=== PATIENT | female | born 1990 | race Caucasian/White ===

== ENCOUNTER 2023-08-02 16:24 | Outpatient (REF) | payer MEDICAID, SELFPAY | END 2023-08-02 16:25 | disposition home or self-care (01) | LOC: HO.HHCLNP 16:24 | PROVIDERS: Visit Provider Internal Medicine | DX: O23.42 Unspecified infection of urinary tract in pregnancy, second trimester (principal); B96.20 Unspecified Escherichia coli [E. coli] as the cause of diseases classified elsewhere | CPT/HCPCS: 87086; 87088; 87186 ==

== ENCOUNTER 2024-06-13 05:51 | Emergency (ER) | payer MEDICAID, SELFPAY ==
--- NOTE | 2024-06-13 | ECG_ITS ---
Test Reason : SOB Blood Pressure : */* mmHG Vent. Rate : 80 BPM Atrial Rate : 80 BPM P-R Int : 150 ms QRS Dur : 78 ms QT Int : 374 ms P-R-T Axes : 58 43 30 degrees QTcB Int : 431 ms Normal sinus rhythm Nonspecific ST and T wave abnormality Borderline ECG When compared with ECG of 01-May-2006 19:10, Nonspecific ST and T wave abnormality present Referred By: Generic ED Physician Electronically Signed By: MEME SILVA
--- NOTE | ~2024-06-13 | XR_ITS ---
CLINICAL HISTORY: dyspnea 1 view chest x-ray. Comparison: None Findings: The lungs are adequately expanded. No focal consolidation. No effusion or pneumothorax. Cardiac and mediastinal contours are within normal limits. No acute osseous abnormality Impression: No acute process. This document has been electronically signed by: Morris Prasad MD on 06/13/2024 07:54:55
[2024-06-13 05:54] VITALS: BP 145/92; PULSE 86; O2SAT 99
[2024-06-13 06:01] VITALS: BP 146/93; PULSE 77; RESP 20; TEMP 36.3; O2SAT 99; BMI 33.7
[2024-06-13 06:28] LABS: MANUAL DIFF FLAG NO
[2024-06-13 06:29] LABS: Basophils Absolute Auto 0.1 X10*3/uL (0.0-0.2); Basophils Percent Auto 0.6 % (0-2); Eosinophils Absolute Auto 0.2 X10*3/uL (0.0-0.4); Eosinophils Percent Auto 2.2 % (0-4); Hematocrit 42.4 % (37.0-47.0); Hemoglobin 14.6 g/dl (12.0-16.0); Imm Gran Abs Auto 0.06 X10*3/uL (0.00-0.03); Imm Gran Pct Auto 0.6 % (0.0-0.4); Lymphocytes Absolute Auto 1.5 X10*3/uL (1.2-4.9); Lymphocytes Percent Auto 14.2 % (20-40); Mean Corpuscular HGB Conc 34.4 g/dl (31.0-35.0); Mean Corpuscular Hemoglobin 29.4 pg (27.0-33.0); Mean Corpuscular Volume 85.5 fL (80.0-98.0); Mean Platelet Volume 10.4 fL (9.4-12.3); Monocytes Absolute Auto 0.7 X10*3/uL (0.1-1.2); Monocytes Percent Auto 6.8 % (2-11); Neutrophils Percent Auto 75.6 % (45-73); Platelet Count 322 X10*3/uL (160-400); Red Blood Count 4.96 X10*6/uL (4.20-5.50); Red Cell Distribution Width 14.7 % (11.0-16.0); White Blood Count 10.6 X10*3/uL (4.8-10.8)
--- OUTSIDE RECORDS SUMMARY | 2024-06-13 06:43 | XMS_ITS | Clinical Summary ---
Author Organization [facility] Address [address] [place] [address] Phone Care Team Providers Care Mixing Picker Tender Name Role Phone Brigette Gomez MD Primary Care Provider [phone] Allergies No known active allergies Medications ondansetron ODT (ZOFRAN-ODT) 4 mg disintegrating tablet Let 1 tablet dissolve under the tongue three times daily as needed for nausea or vomiting. 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 Marijuana abuse 04/13/2013 DX:Marijuana abu se History of anemia 12/30/2011 DX:History of anemia; COMMENT: H&H 8.9/31.1 History of chlamydia 2005 DX:History of chlamydia Seizures (CMS/HCC V24, CMS/HCC V28) 06/26/2023 DX:Seizures (HCC) Pyelonephritis affecting pre gnancy in second trimester 07/01/2023 DX:Pyelonephritis affecting in second trimester Family History Medical History Relation Name Comments Breast cancer Aunt No Known Problems Brother Other: autism Daughter Colon cancer Father Liver cancer Father Lung cancer Maternal Grandfather Other: heart issues Maternal Grandmother Bipolar disorder Mother Depression Mother Bipolar disorder Sister Depression Sister Other: heart murmur Sister Learning disabilities Son 1 Relation Name Status Comments Aunt Brother Daughter Alive Father Maternal Grandfather Maternal Grandmother Mother Sister Son 1 Alive Son 2 Alive Social History Tobacco Use Types Packs/Day Years Used Date Smoking Tobacco: Former Smokeless Tobacco: Never Alcohol Use Standard Drinks/Week Comments No 0 (1 standard drink = 0.6 oz pur e alcohol) Comments No Sex and Gender Information Value Date Recorded Sex Assigned at Not on file Legal Sex Female 2:29 PM EST Gender Identity Not on file Sexual Orientation Not on file Obstetrics History Last Filed Vital Signs Vital Sign Reading Time Taken Comments Blood Pressure 110/91 06/06/2024 2:00 AM EDT Pulse 72 06/06/2024 2:00 AM EDT Temperature 37.1 ??C (98.7 ??F) 06/06/2024 12:17 AM E DT Respiratory Rate 16 06/06/2024 2:00 AM EDT Oxygen Saturation 100% 06/06/2024 2:00 AM EDT Inhaled Oxygen Concentration - - Weight 84.4 kg (186 lb) 06/05/2024 10:15 PM EDT Height 160 cm (5' 3 ) 06/05/2024 10:15 PM EDT Body Mass Index 32.95 06/05/2024 10:15 PM EDT Plan of Treatment Health Maintenance Due Date Last Done Comments Hepatitis A Vaccines (1 of 2 - Risk 2-dose series) 2008 HPV Vaccines (3 - 3-dose series) 06/06/2008 02/13/2008, 12/07/2007 Depression Screening 09/20/2023 08/11/2022 Social Influencers of Health Screening 09/20/2023 COVID-19 Vaccine ( season) 2023 08/11/2022, 2021, 10/10/2020 Influenza Vaccine (Season Ended) 2024 05/09/2018, 01/05/2016, 12/26/2014, Additional history exists Cervical Cancer Screening: Pap Smear 05/02/2026 05/03/2023 DTaP,Tdap,and Td Vaccines (10 - Td or Tdap) 09/14/2033 09/15/2023, 08/10/2016, 11/07/2013, Additional history exists HIB Vaccines Completed 10/22/1990, 1989 IPV Vaccines Completed 09/21/1994, 02/1990, 1989, Additional history exists MMR Vaccines Completed 09/21/1994, 10/22/1990 Hepatitis B Vaccines Completed 04/20/2002, 01/04/2002, 11/30/2001 HIV Screening Completed 08/11/2022 Hepatitis C Screening Completed 08/11/2022 Meningococcal ACWY Vaccine Aged Out N o longer eligible based on patient's age to complete this topic Meningococcal B Vaccine Aged Out No l onger eligible based on patient's age to complete this topic Pneumococcal Vaccine: Pediatrics (0 to 5 Years) and At-Risk Patients (6 to 64 Years) Aged Out No longer eligible based on patient's age to complete this topic RSV Immunization Patients Under 20 months Aged Out No longer eligible based on patient's age to complete this topic Varicella Vaccines Aged Out No longer eligible based on patient's age to complete this topic Procedures Procedure Name Priority Date/Time Associated Diagnosis Comments [id number], RSV, FLU A AND B QUALITATIVE RT-PCR, INTERNAL LAB STAT 06/06/2024 12:28 AM EDT [place] URINE CULTURE TUBE STAT 06/06/2024 12:24 AM EDT URINALYSIS WITH REFLEX MICROSCOPIC AND CULTURE STAT 06/06/2024 12:24 AM EDT URINALYSIS WITH REFLEX MICROSCOPIC AND CULTURE STAT 06/06/2024 12:24 AM EDT CULTURE URINE STAT 06/06/2024 12:24 AM EDT POC , URINE DIAGNOSTIC STAT 06/05/2024 10:31 PM EDT CBC WITH AUTO DIFFERENTIAL STAT 06/05/2024 10:25 PM EDT COMPREHENSIVE METABOLIC PANEL STAT 06/05/2024 10:25 PM EDT CBC AND DIFFERENTIAL STAT 06/05/2024 10:25 PM EDT PAP SMEAR Routine 05/03/2023 from Last 3 Months or Most Recently Relevant to Health Maintenance Results * [id number], RSV, Influenza A and B qualitative RT-PCR (06/06/2024 12:28 AM EDT) Influenza A PCR Not Detected Not Detected LAB MICROBIOLOGY METHOD 06/06/2024 1:27 AM EDT [facility] Influenza B PCR Not Detected Not Detected LAB MICROBIOLOGY METHOD 06/06/2024 1:27 AM EDT [facility] RSV PCR Not Detected Not Detected LAB MICROBIOLOGY METHOD 06/06/2024 1:27 AM EDT [facility] SARS COV-2 Not Detected Not Detected LAB MICROBIOLOGY METHOD 06/06/2024 1:27 AM EDT [facility] Swab Both anterior nares / Unknown Non-blood Collection / Unknown 06/06/2024 12:28 AM EDT 06/06/2024 12:39 AM EDT Narrative [facility] - 06/06/2024 1:27 AM EDT Disclaimer: ??Testing was performed using the [employer] GeneXpert Xpress SARS-CoV-2 _Flu_RSV PLUS PCR assay. ??The manner in which this information is used to guide patient care is the responsibility of the healthcare provider. ??Results should be correlated with the clinical history, epidemiological data, and other data available to the clinician evaluating the patient. ??Negative results do not preclude infection. ??This test has been authorized by the FDA under an Emergency Use Authorization (EUA). ??This test is only authorized for the duration of time the declaration that circumstances exist justifying the authorization of the emergency use of in vitro diagnostic tests for detection of SARS-CoV-2 virus and/or diagnosis of COVID-19 infection under section 564 (b) (1) of the Act, 21 U.S.C 360bbb-3 (b) (1), unless the authorization is terminated or revoked sooner. ?? Reference Range: Not Detected Fact sheet for Healthcare providers can be found at https://www.fda.gov/media/926598/download. ?? Fact sheet for Healthcare patients can be found at https://www.fda.gov/media/389764/download. us Adrianna Tobias MD LAB MICROBIOLOGY - GENER AL ORDERABLES Final Result [facility] [address] [place] [address], [place] [phone] * (ABNORMAL) Urinalysis with reflex microscopic and culture (06/06/2024 12:24 AM EDT) Specific [place] Urine >1.045(H) 1.003 - 1.030 LAB URINALYSIS - AUTOMATED METHOD 06/06/2024 1:02 AM [facility] pH, Urine 5.5 5.0 - 8.0 pH LAB URINALYSIS - AUTOMATED METHOD 06/06/2024 1:02 AM [facility] Leukocytes, Urine Negative Negative LAB URINALYSIS - AUTOMATED METHOD 06/06/2024 1:02 AM [facility] Nitrite, Urine Negative Negative LAB URINALYSIS - AUTOMATED METHOD 06/06/2024 1:02 AM [facility] Protein, Urine 30(A) <=Trace mg/dL LAB URINALYSIS - AUTOMATED METHOD 06/06/2024 1:02 AM [facility] Glucose, Urine Negative Negative mg/dL LAB URINALYSIS - AUTOMATED METHOD 06/06/2024 1:02 AM [facility] Ketones, Urine >=80(A) Negative mg/dL LAB URINALYSIS - AUTOMATED METHOD 06/06/2024 1:02 AM [facility] Urobilinogen , Urine 1.0 0.2 - 1.0 mg/dL LAB URINALYSIS - AUTOMATED METHOD 06/06/2024 1:02 AM [facility] Bilirubin, Urine Negative Negative LAB URINALYSIS - AUTOMATED METHOD 06/06/2024 1:02 AM [facility] Blood, Urine Negative Negative LAB URINALYSIS - AUTOMATED METHOD 06/06/2024 1:02 AM [facility] RBC, Urine 4 0 - 4 /HPF LAB URINALYSIS - AUTOMATED METHOD 06/06/2024 1:02 AM [facility] WBC, Urine 4.7(H) 0 - 4 /HPF LAB URINALYSIS - AUTOMATED METHOD 06/06/2024 1:02 AM [facility] Squamous Epithelial, Urine >100(H) 0 - 60 /LPF LAB URINALYSIS - AUTOMATED METHOD 06/06/2024 1:02 AM [facility] Bacteria, Urine Moderate(A) Negative /HPF LAB URINALYSIS - AUTOMATED METHOD 06/06/2024 1:02 AM [facility] Hyaline Casts, Urine 17.7(H) 0 - 3 /LPF LAB URINALYSIS - AUTOMATED METHOD 06/06/2024 1:02 AM [facility] Urine Urine specimen obtained by clean catch procedure / Unknown Non-blood Collection / Unknown 06/06/2024 12:24 AM EDT 06/06/2024 12:39 AM EDT us Adrianna Tobias MD LAB URINE ORDERABLES Fin al Result [facility] [address] [place] [address], * [place] urine culture tube (06/06/2024 12:24 AM EDT) Extra Tube Hold for add-ons. 06/06/2024 2:04 AM EDT [facility] Comment:Auto resulted. Urine Urine specimen obtained by clean catch procedure / Unknown Non-blood Collection / Unknown 06/06/2024 12:24 AM EDT 06/06/2024 12:39 AM EDT Adrianna Tobias MD LAB URINE ORDERABLES Fin al Result Performing Organization Address [facility]/ZIP Co de Phone Number [facility] [address] [place] [address], [place] [phone] * Culture urine (06/06/2024 12:24 AM EDT) Pathologist [facility] Culture, Urine 10,000-49,000 CFU/mL Mixed urogenital christiano, no uropathogens present. Suggest repeat specimen if clinically indicated. 06/07/2024 10:34 AM EDT [facility] Urine Urine specimen obtained by clean catch procedure / Unknown Non-blood Collection / Unknown 06/06/2024 12:24 AM EDT 06/06/2024 1:01 AM EDT Adrianna Tobias MD LAB MICROBIOLOGY - GENER AL ORDERABLES Final Result Performing Organization Address City/[facility]/ZIP Co de Phone Number [facility] [address] [place] [address], [place] [phone] * POC , urine manually resulted (06/05/2024 10:31 PM EDT) HCG, Ur POC Negative Negative POC hCG Int QC Pass? Yes Yes Urine Urine specimen obtained by clean catch procedure / Unknown 06/05/2024 10:31 PM EDT Adrianna Tobias MD POINT OF CARE TEST ENTER /EDIT ORDERABLES Final Result * CBC auto differential (06/05/2024 10:25 PM EDT) [facility] WBC 9.9 4.8 - 10.8 K/mcL LAB HEMETOLOGY METHOD 06/05/2024 10:42 PM EDT [facility] RBC 4.60 3.80 - 4.80 M/mcL LAB HEMETOLOGY METHOD 06/05/2024 10:42 PM EDT [facility] Hemoglobin 13.1 11.5 - 16.0 g/dL LAB HEMETOLOGY METHOD 06/05/2024 10:[facility] Hematocrit 40.0 35.0 - 47.0 % LAB HEMETOLOGY METHOD 06/05/2024 10:42 [facility] MCV 87.5 79.0 - 98.0 FL LAB HEMETOLOGY METHOD 06/05/2024 10:42 PM [facility] MCH 28.7 27.0 - 32.0 pcg LAB HEMETOLOGY METHOD 06/05/2024 10:42 PM [facility] MCHC 32.8 32.0 - 37.0 g/dL LAB HEMETOLOGY METHOD 06/05/2024 10:42 PM [facility] RDW 14.6 11.0 - 15.0 % LAB HEMETOLOGY METHOD 06/05/2024 10:42 PM [facility] Platelets 301 130 - 400 K/mcL LAB HEMETOLOGY METHOD 06/05/2024 10:42 PM [facility] MPV 10.3 7.0 - 11.0 FL LAB HEMETOLOGY METHOD 06/05/2024 10:42 PM [facility] NRBC 0.0 <1.0 % LAB HEMETOLOGY METHOD 06/05/2024 10:42 PM [facility] NRBC Absolute 0.00 <0.10 K/mcL LAB HEMETOLOGY METHOD 06/05/2024 10:42 PM T [facility] Neutrophils Relative 68.3 % LAB HEMETOLOGY METHOD 06/05/2024 10:42 PM [facility] Lymphocytes Relative 21.6 % LAB HEMETOLOGY METHOD 06/05/2024 10:42 PM [facility] Monocytes Relative 6.7 % LAB HEMETOLOGY METHOD 06/05/2024 10:42 PM [facility] Eosinophils Relative 2.4 % LAB HEMETOLOGY METHOD 06/05/2024 10:42 PM [facility] Basophils Relative 0.7 % LAB HEMETOLOGY METHOD 06/05/2024 10:42 PM [facility] Immature Granulocytes Relative 0.3 % LAB HEMETOLOGY METHOD 06/05/2024 10:42 PM [facility] Neutrophils Absolute 6.72 1.50 - 7.00 K/mcL LAB HEMETOLOGY METHOD 06/05/2024 10:42 PM [facility] Lymphocytes Absolute 2.13 1.00 - 5.00 K/mcL LAB HEMETOLOGY METHOD 06/05/2024 10:42 PM [facility] Monocytes Absolute 0.66 0.20 - 1.00 K/mcL LAB HEMETOLOGY METHOD 06/05/2024 10:42 PM [facility] Eosinophils Absolute 0.24 0.00 - 0.50 K/mcL LAB HEMETOLOGY METHOD 06/05/2024 10:42 PM [facility] Basophils Absolute 0.07 0.00 - 0.20 K/mcL LAB HEMETOLOGY METHOD 06/05/2024 10:42 PM [facility] Immature Granulocytes Absolute 0.03 0.00 - 0.03 K/mcL LAB HEMETOLOGY METHOD 06/05/2024 10:42 PM [facility] Blood Venous blood specimen / Unknown Venipuncture / Unknown 06/05/2024 10:25 PM EDT 06/05/2024 10:37 PM EDT Adrianna Tobias MD LAB BLOOD ORDERABLES Fin al Result [facility] [address] [place] [address], [place] [phone] * Comprehensive metabolic panel (06/05/2024 10:25 PM EDT) Sodium 140 133 - 145 mmol/L LAB CHEMISTRY METHOD 06/06/2024 12:16 AM [facility] Potassium 3.5 3.5 - 5.5 mmol/L LAB CHEMISTRY METHOD 06/06/2024 12:16 AM [facility] Chloride 108 96 - 110 mmol/L LAB CHEMISTRY METHOD 06/06/2024 12:16 AM [facility] CO2 23 21 - 32 mmol/L LAB CHEMISTRY METHOD 06/06/2024 12:16 AM [facility] Anion Gap 9 3 - 11 LAB CHEMISTRY METHOD 06/06/2024 12:16 AM [facility] Glucose 98 70 - 100 mg/dL LAB CHEMISTRY METHOD 06/06/2024 12:16 AM [facility] BUN 10 5 - 25 mg/dL LAB CHEMISTRY METHOD 06/06/2024 12:16 AM [facility] Creatinine 0.80 0.50 - 1.10 mg/dL LAB CHEMISTRY METHOD 06/06/2024 12:16 AM [facility] eGFR 99 >=60 mL/min/1. 73m2 LAB CHEMISTRY METHOD 06/06/2024 12:16 AM [facility] Comment:Calculation based on the??Chronic Kidney Disease Epidemiology Collaboration (CKD-EPI) equation refit??without adjustment for race. BUN/Creatinine Ratio 12.5 LAB CHEMISTRY METHOD 06/06/2024 12:16 AM [facility] Calcium 9.4 8.5 - 10.5 mg/dL LAB CHEMISTRY METHOD 06/06/2024 12:16 AM [facility] AST (SGOT) 14 10 - 42 unit/L LAB CHEMISTRY METHOD 06/06/2024 12:16 AM [facility] ALT (SGPT) 19 10 - 60 unit/L LAB CHEMISTRY METHOD 06/06/2024 12:16 AM [facility] Alkaline Phosphatase 75 42 - 121 unit/L LAB CHEMISTRY METHOD 06/06/2024 12:16 AM [facility] Total Protein 7.7 6.0 - 8.0 g/dL LAB CHEMISTRY METHOD 06/06/2024 12:16 AM [facility] Albumin 3.9 3.2 - 5.0 g/dL LAB CHEMISTRY METHOD 06/06/2024 12:16 AM [facility] Total Bilirubin 0.4 0.0 - 1.4 mg/dL LAB CHEMISTRY METHOD 06/06/2024 12:16 AM [facility] Blood Venous blood specimen / Unknown Venipuncture / Unknown 06/05/2024 10:25 PM EDT 06/05/2024 10:37 PM EDT us Adrianna Tobias MD LAB BLOOD ORDERABLES Fin al Result [facility] [address] [place] [address], * Pap smear (05/03/2023) 05/03/2023 Narrative HISTORICAL TESTING LAB RESULTING AGENCY - 05/11/2023 9:25 AM EDT [id number] THINPREP PAP, IMAGED: NEGATIVE FOR SQUAMOUS INTRAEPITHELIAL LESION AND MALIGNANCY . ABUNDANT PARTIALLY OBSCURING ACUTE INFLAMMATORY CELLS ARE PRESENT. SAMSON TOBIAS , CT(ASCP) (CASE ELECTRONICALLY SIGNED 05 11 2023) RESULT OF APTIMA HIGH RISK HPV ASSAY: HIGH RISK HPV: ??NEGATIVE (SEROTYPES 16,18,31,33,35,39,45,51,52,56,58,59,66,68) COMPLETED ON 2023-05-05 ADEQUACY: SATISFACTORY ENDOCERVICAL/TRANSFORMATION ZONE COMPONENT PRESENT. SOURCE: THINPREP PAP HPV ANY DX: ??REFLEX 16 AND 18, CERVICAL, IMAGED CLINICAL INFORMATION: HPV ANY DIAGNOSIS. , PAP HX NEGATIVE, [Z12.4] Tressa LAW LAB CYTOLOGY ORDERABLES Final Result HISTORICAL TESTING LAB RESULTING AGENCY from Last 3 Months or Most Recently Relevant to Health Maintenance Insurance MEDICAID - [place] Care Teams Mixing Picker Tender Relationship Specialty Start Date End Date Brigette Gomez MD [address] [place] [phone] PCP - General 1/28/08
--- OUTSIDE RECORDS SUMMARY | 2024-06-13 06:43 | XMS_ITS | Encounter Summary ---
Author Organization [employer] Address [address] [facility] 7 [place] [address] Care Team Providers Care Employee Benefits Administrator Name Role Phone Brigette Gomez MD Primary Care Provider [phone] Reason for Visit * Reason Onset Date Comments Care Management 06/08/2024 C3CM follow up c all Encounter Details Date Type Department Care Team ([facility] st Contact Info) Description 06/08/2024 Telephone [facility] [address] [place] [address] Brigette Gomez MD [address] [place] [address] Care Management (C3CM follow up call) Social History Tobacco Use Types Packs/Day Years Used Date Smoking Tobacco: Former Cigarettes Passive Smoke Exposure: Past Smokeless Tobacco: Never Depression Answer Date Recorded Patient Health Questionnaire-9 Score 1 08/11/2022 Housing Stability Answer Date Recorded What is your housing situation today? I have amadou farmer 12/22/[address] you li ve. Do you have problems with any of the following? None of the above 12/22/2022 Food Insecurity Answer Date Recorded Within the past 12 months, y ou worried that your food would run out before you got money to buy more: Never True 12/22/2022 Within the past 12 months,th e food you bought just didn't last and you didn't have enough money to get more: Never True 02/2022 Transportation Answer Date Recorded In the past 12 months, has l ack of transportation kept you from medical appts, meetings, work or from getting things needed for daily living? No 12/22/2022 Utilities Answer Date Recorded In the past 12 months, has t he electric, gas, oil or water company threatened to shut off services in your home? No 12/22/2022 Depression Answer Date Recorded Patient Health Questionnaire-2 Score 0 08/11/2022 Comments Unknown Sex and Gender Information Value Date Recorded Sex Assigned at Female 12/21/2021 10:14 AM EDT Legal Sex Female 10:14 AM EDT Gender Identity Female 12/21/2021 10:14 AM EDT Sexual Orientation Straight 12/21/2021 10 :14 AM EDT documented as of this encounter Miscellaneous Notes * Telephone Encounter - Greta Jack - 06/08/2024 2:03 PM EDT CM Greta Jack RN placed outbound call to patient. Patient's name, and address confirmed.Propellant Charge Loader called for status check in regards to [facility] ED visit on 06/05/24 for nausea and vomiting. Patient was discharged with zofran and no other medication changes. Patient reports that she is doing well and feeling much better. She is asymptomatic and is able to eat and drink. Patient has no o ther concerns. No further questions or concerns. CM reinforced direct contact information or CHW for any additional questions or concerns. Education provided on [facility]In Urgent Care located in [facility]. Patient provided with after-hours line for [facility], , which offer night time triage service and option to transfer to radiotelephone operator provider if needed. Patient verbalizes understanding, and able to repeat back to bid writer. A follow up call will be placed within 10 days, patientagrees with plan. documented in this encounter Plan of Treatment Upcoming Encounters Date Type Department Care Team (Late st Contact Info) Description 07/02/2024 10:30 AM EDT Office Visit [facility] [address] [place], [place] [id number] Adam, Mariecl, OD [address] [place] [address] documented as of this encounter Visit Diagnoses Not on filedocumented in this encounter Additional Health Concerns Assessment Noted Time PHQ-9 Depression Total Score: 1 08/12/19 23 11:30 AM EDT documented as of this encounter Care Teams Employee Benefits Administrator Relationship Specialty Start Date End Date Brigette Gomez MD [address] [place] [address] PCP - General Family Medicine 02/21/18 Greta Jack Propellant Charge Loader 07/11/23 documented as of this encounter
--- OUTSIDE RECORDS SUMMARY | 2024-06-13 06:43 | XMS_ITS | Encounter Summary ---
Author Organization [employer] Address [address] [facility] [address] [place] [address] Care Team Providers Care Glass Worker Name Role Phone Brigette Gomez MD Primary Care Provider [phone] Reason for Visit * Reason Onset Date Comments Med Refill 01/31/2023 Encounter Details Date Type Department Care Team (Late st Contact Info) Description 01/31/2023 Telephone [facility] [address] [place] [address] Brigette Gomez MD [address] [place] [address] Med Refill Social History Tobacco Use Types Packs/Day Years [...] encounter Miscellaneous Notes * Telephone Encounter - Renee Cerrato LPN - 01/31/2023 9:17 AM EST Medication was sent to [facility] on 08/11/22 #90 with 3 refills. * Telephone Encounter - Nat Buenrostro - 01/31/2023 9:00 AM EST Tc from pt requesting medication refill on cetirizine (ZyrTEC) 10 MG tablet documented in this encounter Plan of Treatment Upcoming Encounters Date Type Department Care Team (Late st Contact Info) Description 07/02/2024 10:30 AM EDT Office Visit [facility] [address] [place] [address] Adam, Maricel, OD [address] [place] [address] documented as of this encounter Visit Diagnoses Not on filedocumented in this encounter Additional Health Concerns Assessment Noted Time PHQ-9 Depression Total Score: 1 08/12/19 23 11:30 AM EDT documented as of this encounter Care Teams Glass Worker Relationship Specialty Start Date End Date Brigette Gomez MD [address] [place] [address] PCP - General Family Medicine 02/21/18 Greta Jack Metropolitan Editor 07/11/23 documented as of this encounter
--- OUTSIDE RECORDS SUMMARY | 2024-06-13 06:43 | XMS_ITS | Encounter Summary ---
Author Organization [employer] Address [address] [facility] [address] [place] [address] Care Team Providers Care Facialist Name Role Phone Brigette Gomez MD Primary Care Provider [phone] Reason for Visit * Reason Comments Dental Pain Encounter Details Date Type Department Care Team ([facility] st Contact Info) Description 06/12/2024 1:00 PM EDT Office Visit [facility] [address] [place] [address] Handy Randall DDS [address] [place] [address] Retained dental root (Primary Dx) Social History Tobacco Use Types Packs/Day Years Used Date Smoking Tobacco: Former Cigarettes Passive Smoke Exposure: Past Smokeless Tobacco: Never Alcohol Use Standard Drinks/Week Comments Defer 0 (1 standard drink = 0.6 oz pur e alcohol) Depression Answer Date Recorded Patient Health Questionnaire-9 [...] AM EDT documented as of this encounter Last Filed Vital Signs Vital Sign Reading Time Taken Comments Blood Pressure 120/74 06/12/2024 1:23 PM EDT Pulse 66 06/12/2024 1:23 PM EDT Temperature - - Respiratory Rate - - Oxygen Saturation - - Inhaled Oxygen Concentration - - Weight - - Height - - Body Mass Index - - documented in this encounter Progress Notes * Handy Randall DDS - 06/12/2024 1:00 PM EDT Dental procedures in this visit D0140 - LIMITED ORAL EVALUATION - PROBLEM FOCUSED (Completed) Service provider: Handy Randall DDS [place] provider: Handy Ranadll DDS D9450 - CASE PRESENTATION, DETAILED AND EXTENSIVE TREATMENT PLANNING (Completed) Service provider: Handy Randall DDS [place] provider: Handy Randall DDS D0330 - PANORAMIC RADIOGRAPHIC IMAGE (Completed) Service provider: Handy Randall DDS [place] provider: Handy Randall DDS D7140 - EXTRACTION, ERUPTED TOOTH OR EXPOSED ROOT (ELEVATION/FORCEPS REMOVAL) 19 (Completed) Service provider: Handy Randall DDS [place] provider: Handy Randall DDS Patient ID: Karly Mitchell is a 34 y.o. female. Time Out: Timeout Date: 06/12/24, Timeout Time: 1305 (pt came in as an emergency with pain on her let side for the pass week. panorex taken. ext on tooth #19) Location: [facility] Tooth: Mandible and #19 Procedure: X-rays, Extraction, and Emergency Verified the above with patient, tax accounting assistant, and provider. Confirmed via patient's chart, intraorally and by radiographs. Product Development Manager: not applicable Chief Complaint Patient presents with Dental Pain Medical Hx: Vitals: Blood pressure 120/74, pulse 66, unknown if currently . Past Medical History: Diagnosis Date Headache 06/28/2012 PTSD (post-traumatic stress disorder) Seizures (CMS/HCC) Vitamin D deficiency 08/11/2022 Medications: Outpatient Encounter Medications as of 06/12/2024 Medication Sig Dispense Refill cetirizine (ZyrTEC) 10 MG tablet Take 1 tablet (10 mg) by mouth in the morning. 90 tablet 3 fluticasone (Flonase) 50 MCG/ACT nasal spray Administer 1 spray into each nostril in the morning. 16 g 11 hydrOXYzine HCl (Atarax) 25 MG tablet TAKE 1 TABLET BY MOUTH EVERY 8 HOURS 90 tablet 11 Vit-DSS-Fe Fum-FA (Se- 19) 29-1 MG tablet Take 1 tablet by mouth Once per day. pyridoxine (Vitamin B-6) 25 MG tablet Take 1 tablet by mouth before breakfast and before evening meal. sertraline (Zoloft) 25 MG tablet TAKE 1 TABLET BY MOUTH EVERY MORNING WITH 50 MG TABLET 30 tablet 1 sertraline (Zoloft) 50 MG tablet TAKE 1 TABLET BY MOUTH EVERY MORNING WITH 25 MG TABLET 30 tablet 1 Facility-Administered Encounter Medications as of 06/12/2024 Medication Dose Route Frequency Provider Last Rate Last Admin medroxyPROGESTERone (Depo-Provera) injection 150 mg 150 mg Intramuscular q3 months Brigette Gomez MD 150 mg at 06/09/22 1210 Subjective: Pain: intermittent Duration: >5 days Objective: Tooth: #19 Radiographs Taken: Panoramic Radiographic Findings: Periapical Radiolucency and Root Tip Clinical Findings: Erythematous, edematous gingival region Swelling: Tenderness Endo Testing: NO Perio: BOP Other Findings: Missing teeth acquired Diagnosis: Dental abscess, retained roots Assessment/Plan: EOE X rays Exo # 19 Prescription sent to control pain and infection Prescriptions: sent to [facility] on file. Pt tolerated procedure well, all questions answered. Dismissed in good condition. NV: F/U as needed / EXAM Heat Treater Head: Syeda Canales Dentist: Handy Randall DDS * Handy Randall DDS - 06/12/2024 1:00 PM EDT Patient ID: Karly Mitchell is a 34 y.o. female. Time Out: Timeout Date: 06/12/24, Timeout Time: 1305 (pt came in as an emergency with pain on her let side for the pass week. panorex taken. ext on tooth #19) Location: [facility] Tooth: Mandible and #19 Procedure: Extraction Verified the above with patient, tax accounting assistant, and provider. Confirmed via patient's chart, intraorally and by radiographs. Product Development Manager: not applicable Chief Complaint Patient presents with Dental Pain Medical Hx: Vitals: Blood pressure 120/74, pulse 66, unknown if currently . Past Medical History: Diagnosis Date Headache 06/28/2012 PTSD (post-traumatic stress disorder) Seizures (CMS/HCC) Vitamin D deficiency 08/11/2022 Medications: Outpatient Encounter Medications as of 06/12/2024 Medication Sig Dispense Refill cetirizine (ZyrTEC) 10 MG tablet Take 1 tablet (10 mg) by mouth in the morning. 90 tablet 3 fluticasone (Flonase) 50 MCG/ACT nasal spray Administer 1 spray into each nostril in the morning. 16 g 11 hydrOXYzine HCl (Atarax) 25 MG tablet TAKE 1 TABLET BY MOUTH EVERY 8 HOURS 90 tablet 11 Vit-DSS-Fe Fum-FA (Se-Uziel 19) 29-1 MG tablet Take 1 tablet by mouth Once per day. pyridoxine (Vitamin B-6) 25 MG tablet Take 1 tablet by mouth before breakfast and before evening meal. sertraline (Zoloft) 25 MG tablet TAKE 1 TABLET BY MOUTH EVERY MORNING WITH 50 MG TABLET 30 tablet 1 sertraline (Zoloft) 50 MG tablet TAKE 1 TABLET BY MOUTH EVERY MORNING WITH 25 MG TABLET 30 tablet 1 Facility-Administered Encounter Medications as of 06/12/2024 Medication Dose Route Frequency Provider Last Rate Last Admin medroxyPROGESTERone (Depo-Provera) injection 150 mg 150 mg Intramuscular q3 months Brigette Gomez MD 150 mg at 06/09/22 1210 Consent Obtained: The risks, benefits, indications, potential complications, and alternatives were explained to the patient and informed consent was obtained with good understanding. Treatment Provided: Dental procedures in this visit D0140 - LIMITED ORAL EVALUATION - PROBLEM FOCUSED (Completed) Service provider: Handy Randall DDS Billing provider: Handy Randall DDS D9450 - CASE PRESENTATION, DETAILED AND EXTENSIVE TREATMENT PLANNING (Completed) Service provider: Handy Randall DDS Billing provider: Handy Randall DDS D0330 - PANORAMIC RADIOGRAPHIC IMAGE (Completed) Service provider: Handy Randall DDS Billing provider: Handy Randall DDS D7140 - EXTRACTION, ERUPTED TOOTH OR EXPOSED ROOT (ELEVATION/FORCEPS REMOVAL) 19 (Completed) Service provider: Handy Randall DDS Billing provider: Handy Randall DDS Diagnosis: Retained roots, dental abscess Topical: 20% Benzocaine Anesthesia: 2% Lidocaine (Xylocaine) w/ 1:100,000 epinephrine Number of Cartridges: 1 Injection Type: Inferior alveolar nerve block, Long buccal nerve block, and Intrapapillary injection Confirmed profound anesthesia. Pharyngeal curtain and bite block placed. Removed tooth with elevators and forceps. Apices intact. Surgical Extraction: Yes, #19 Socket curetted & irrigated with sterile water. Compressed alveolar bone. Sutures: None Needed All adjacent teeth intact. Hemostasis achieved. Complications: None. Pt tolerated procedure well. Prescription sent to [facility] on file. Written and verbal post-op instructions given. Patient discharged in stable condition; ambulatory, alert, and oriented. NV: F/U as needed / Exam Heat Treater Head: Syeda Canales Dentist: Handy Randall DDS documented in this encounter Plan of Treatment Upcoming Encounters Date Type Department Care Team (Late st Contact Info) Description 07/02/2024 10:30 AM EDT Office Visit [facility] [address] [place] [address] Adam, Maricel, OD [address] [facility] [place] [address] documented as of this encounter Procedures Procedure Name Priority Date/Time Associated Diagnosis Comments PANORAMIC RADIOGRAPHIC IMAGE Routine 06/12/2024 1:00 PM EDT LIMITED ORAL EVALUATION - PROBLEM FOCUSED Routine 06/12/2024 1:00 PM EDT 19 EXTRACTION, ERUPTED TOOTH OR EXPOSED ROOT (ELEVATION/FORCEPS REMOVAL) Routine 06/12/2024 1:00 PM EDT CASE PRESENTATION, DETAILED AND EXTENSIVE TREATMENT PLANNING Routine 06/12/2024 1:00 PM EDT documented in this encounter Visit Diagnoses Diagnosis Retained dental root- Primary documented in this encounter Additional Health Concerns Assessment Noted Time PHQ-9 Depression Total Score: 1 08/12/19 23 11:30 AM EDT documented as of this encounter Care Teams Facialist Relationship Specialty Start Date End Date Brigette Gomez MD [address] [place] [id number] PCP - General Family Medicine 02/21/18 Greta Jack Junior Assistant Manager 07/11/23 documented as of this encounter
--- OUTSIDE RECORDS SUMMARY | 2024-06-13 06:43 | XMS_ITS | Encounter Summary ---
Author Organization [employer] [facility] Address [address] [place] [address] [address] [place] [address] Care Team Providers Care Metal Ceiling Builder Name Role Phone Brigette Gomez MD Primary Care Provider [phone] Reason for Visit * Reason Comments Med Refill Encounter Details Date Type Department Care Team (Late st Contact Info) Description 04/09/2022 Refill [facility] [address] [place] [address] Brigette Gomez MD [address] [place] [address] Social History Tobacco Use Types Packs/Day Years Used Date Smoking Tobacco: Never Assessed Comments Unknown Sex and Gender Information Value Date Recorded Sex Assigned at Female 12/21/2021 10:14 AM EDT Legal Sex Female 10:14 AM EDT Gender Identity Female 12/21/2021 10:14 AM EDT Sexual Orientation Straight 12/21/2021 10 :14 AM EDT documented as of this encounter Plan of Treatment Upcoming Encounters Date Type Department Care Team (Late st Contact Info) Description 07/02/2024 10:30 AM EDT Office Visit [facility] OPT[facility] [address] [place] [address] Adam, Maricel, OD [address] [place] [address] documented as of this encounter Visit Diagnoses Not on filedocumented in this encounter Care Teams Metal Ceiling Builder Relationship Specialty Start Date End Date Brigette Gomez MD [address] [place] [address] PCP - General Family Medicine 02/21/18 Greta Jack Professional Employer Consultant 07/11/23 documented as of this encounter
--- OUTSIDE RECORDS SUMMARY | 2024-06-13 06:43 | XMS_ITS | Clinical Summary ---
Author Organization [facility] Address [address] [place] [address] Care Team Providers Care Automobile Detailer Name Role Phone Unavailable Primary Care Provider Unavailabl e Medications Medication Sig Dispensed Refills Start Date End Date Status sertraline (ZOLOFT) 25 MG tablet TAKE 1 TABLET BY MOUTH DAILY IN THE MORNING WITH 50 MG 0 07/25/2023 Active Vit-Fe Fumarate-FA ( Plus) 27-1 MG TABS tablet Take by mouth. 0 Active pyridoxine (B-6) 25 MG tablet Take 1 tablet (25 mg total) by mouth. 0 05/03/2023 Active Vit-DSS-Fe Fum-FA (Se-Uziel 19) 29-1 MG TABS Take 1 tablet by mouth. 0 06/08/2023 Active nitrofurantoin, macrocrystal-monohydra te, (MACROBID) 100 MG capsule TAKE 1 CAPSULE BY MOUTH TWICE DAILY FOR 7 DAYS 0 08/04/2023 Active Social History Tobacco Use Types Packs/Day Years Used Date Smoking Tobacco: Never Assessed Sex and Gender Information Value Date Recorded Sex Assigned at Female 07/27/2023 11:14 AM EDT Gender Identity Female 07/27/2023 11:14 AM EDT Sexual Orientation Not on file Job Start Date Occupation Industry Not on file Not on file Not on file Last Filed Vital Signs Vital Sign Reading Time Taken Comments Blood Pressure 111/73 08/26/2023 10:39 AM EDT Pulse 94 08/26/2023 10:39 AM EDT Temperature - - Respiratory Rate - - Oxygen Saturation 97% 08/26/2023 10:39 AM EDT Inhaled Oxygen Concentration - - Weight 83.5 kg (184 lb) 08/26/2023 10:39 AM EDT Height - - Body Mass Index - - Plan of Treatment Health Maintenance Due Date Last Done Comments Depression Screening 2001 Preventative Health Evaluation 2007 Cervical Cancer Screening (Pap Smear) 2010 COVID-19 Vaccine ( season) 2023 08/11/2022, 2021, 10/10/2020 Influenza Vaccine (#1) 2023 9, 01/05/2016, 12/26/2014, Additional history exists DTap / Tdap / Td (9 - Td or Tdap) 08/10/2026 08/10/2016, 11/07/2013, 06/28/2012, Additional history exists Hepatitis B Vaccines Completed 04/20/2002, 01/04/2002, 11/30/2001 Hepatitis C Screening Completed 08/11/2022 Pneumococcal Vaccine Aged Out No long er eligible based on patient's age to complete this topic RSV Ped < 20 months Aged Out No longe r eligible based on patient's age to complete this topic
--- OUTSIDE RECORDS SUMMARY | 2024-06-13 06:43 | XMS_ITS | Encounter Summary ---
Author Organization [employer] Address [address] [facility] [address] [place] [address] Care Team Providers Care Slot Machine Department Floorperson Name Role Phone Brigette Gomez MD Primary Care Provider [phone] Encounter Details Date Type Department Care Team (Late st Contact Info) Description 01/19/2023 Abstract [facility] MED[facility] [address] [place] [address] Betty Luna Social History Tobacco Use Types Packs/Day Years [...] Description 07/02/2024 10:30 AM EDT Office Visit [facility] OPTOM[facility] [address] [place] [address] Maricel Medina, OD [address] [place] [address] documented as of this encounter Visit Diagnoses Not on filedocumented in this encounter Additional Health Concerns Assessment Noted Time PHQ-9 Depression Total Score: 1 08/12/19 23 11:30 AM EDT documented as of this encounter Care Teams Slot Machine Department Floorperson Relationship Specialty Start Date End Date Brigette Gomez MD [address] [place] [address] PCP - General Family Medicine 02/21/18 Greta Jack Rhythmic Gymnastics Coach 07/11/23 documented as of this encounter
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
[2024-06-13 07:05] LABS: Influenza A PCR NEGATIVE (Negative); Influenza B PCR NEGATIVE (Negative); Resp Syncy Virus RNA Qual PCR NEGATIVE (Negative); SARS COV2 PCR INHOUSE NEGATIVE (Negative)
[2024-06-13 07:12] LABS: Alanine Aminotransferase 12 U/L (0-31); Albumin Level 4.3 g/dL (3.5-5.0); Alkaline Phosphatase 64 U/L (39-117); Anion Gap 17 (12-20); Aspartate Amino Transferase 27 U/L (5-31); Bilirubin Total 0.3 mg/dL (0.0-1.0); Blood Urea Nitrogen 10 mg/dL (9-16); Calcium 9.2 mg/dL (8.4-10.2); Carbon Dioxide 18 mmol/L (22-29); Chloride 107 mmol/L (96-108); Creatinine Clr Calc Pharmacy 93.8; Estimated Glomerular Filt Rate > 60; Ethanol < 10 mg/dL; Glucose Random 96 mg/dL (60-115); HCG Quantitative < 2 mIU/mL; Potassium 3.4 mmol/L (3.3-5.1); Sodium 139 mmol/L (135-145); Total Protein 7.7 g/dL (6.5-8.0); Troponin-I High Sensitivity < 2.7 ng/L (<3.5-17.0)
[2024-06-13 07:42] LABS: Appearance Urine Cloudy; Color Urine Dark Yellow; Glucose Urine UA Negative (Negative); Leukocyte Esterase Urine Negative (Negative); Nitrite Urine Negative (Negative); PH 5.5 (5.0-9.0); Specific Gravity - Urine >= 1.030 (1.005-1.025); UMIC TRIGGER UACC YES; Urine Blood Negative (Negative); Urine Ketones >=160 mg/dL (Negative); Urine Protein 30 (1+) mg/dL (Neg-Trace)
[2024-06-13 07:59] LABS: Bacteria Urine 3+ (None Seen); Hyaline Casts Urine 0-2 /LPF (0-2); RBC Urine 0-2 /HPF (0-2); Squamous Epithelial Cell Urine >20 /HPF (0-2); UACC Culture Trigger YES
--- NOTE | 2024-06-13 08:05 | ED.GENADULT ---
HPI - General Adult General Chief complaint: Dyspnea Stated complaint: SOB Time Seen by Provider: 06/13/24 08:05 History of Present Illness ED Provider: Sabina US narrative: The patient is a 34-year-old female with a history of anxiety. She is on sertraline. She had a dental extraction from her left maxilla yesterday. This was at around 13:00 yesterday afternoon. She says that she felt mildly unwell during the afternoon and had trouble sleeping last night. This morning at around 2 AM she started to feel short of breath and she also experienced a pressure-like sensation on her chest. She also had nausea and vomiting and diarrhea. She ultimately called an ambulance and came to the hospital. She has no history of asthma or any other lung problems. No cardiac history. She is not on any other medications than sertraline. She is not on control. Related Data Previous Rx's ?Medication ?Instructions ?Recorded ondansetron 4 mg disintegrating 4 mg PO Q6H PRN nausea and 06/13/24 tablet vomiting #10 tabs Allergies Allergy/AdvReac Type Severity Reaction Status Date / Time No Known Allergies Allergy Verified 06/13/24 06:05 Review of Systems Review of Systems: Yes all other systems are reviewed and are negative [facility] Social History Social History Alcohol intake: current Alcohol intake frequency: a few times a week Alcohol type: hard liquor Substance Use Type: Marijuana Physical Exam ED Vital Signs: Vital Signs - 24 hr 06/13/24 06:01 06/13/24 08:23 06/13/24 10:19 Temperature 97.4 F Pulse Rate 77 61 76 Respiratory Rate 20 15 19 Blood Pressure 146/93 H 138/92 H Pulse Oximetry 99 99 Oxygen Delivery Method Room Air Room Air 06/13/24 12:50 06/13/24 13:44 Temperature 98.1 F Pulse Rate 80 99 Respiratory Rate 20 18 Blood Pressure 140/93 H Pulse Oximetry 97 100 Oxygen Delivery Method Room Air Room Air BMI result Body Mass Index 33.7 Const Other: The patient was awake and alert. She was diaphoretic and looked as if she felt unwell. She did not seem in respiratory distress however. HENMT Other: Face is symmetrical. Mucous membranes are moist. There is a site of dental extraction of one of the molars in the left jaw that does not appear infected. Eyes General: appearance normal, both eyes and all related structures Conjunctivae: conjunctivae normal Pupils: Equal, round and reactive pupils present EOM: EOMs intact bilaterally Neck Neck: Yes normal visual inspection and Yes full ROM Resp Effort & Inspection: normal respiratory effort Auscultation: clear to auscultation bilaterally Cardio Rate: regular rate Rhythm: regular rhythm Heart sounds: S1 normal heart sound present and S2 normal heart sound present GI Other: Abdomen is soft and nontender Skin Other: Skin was pale and diaphoretic Neuro Other: The patient was awake and alert but seemed fatigued. Cranial nerves are grossly intact. She moves her extremities symmetrically. She has a steady gait. She seems neurologically intact. Cranial nerves: Yes Equal, round and reactive pupils present Extrem Other: No calf swelling or tenderness, no asymmetry, no pitting edema Medications Administered Discontinued Medications Generic Name Dose Route Start Last Admin Trade Name Freq PRN Reason Stop Dose Admin Diphenhydramine HCl 25 mg 06/13/24 09:28 06/13/24 09:44 Diphenhydramine Hcl 50 Mg/Ml Vial IVPUSH 06/13/24 09:29 25 mg ONCE ONE Administration Haloperidol Lactate 5 mg 06/13/24 09:28 06/13/24 09:44 Haloperidol Lactate 5 Mg/Ml Vial IVPUSH 06/13/24 09:29 5 mg ONCE ONE Administration Sodium Chloride 1,000 mls @ 999 mls/hr 06/13/24 08:30 06/13/24 10:43 Ns IV 06/13/24 09:30 Infused .Q1H1M MG Infusion Lactated Ringer's 1,000 mls @ 999 mls/hr 06/13/24 09:45 06/13/24 11:57 Lr IV 06/13/24 10:45 Infused .Q1H1M MG Infusion Lactated Ringer's 1,000 mls @ 999 mls/hr 06/13/24 11:15 06/13/24 13:31 Lr IV 06/13/24 12:15 Infused .Q1H1M MG Infusion Ketorolac Tromethamine 10 mg 06/13/24 08:20 06/13/24 08:40 Ketorolac Tromethamine 15 Mg/Ml Vial IVPUSH 06/13/24 08:21 10 mg ONCE ONE Administration Ondansetron HCl 4 mg 06/13/24 08:20 06/13/24 08:40 Ondansetron Hcl 4 Mg/2 Ml Vial IVPUSH 06/13/24 08:21 4 mg ONCE ONE Administration Medical Decision Making Medical Decision Making [facility] Narrative: The patient is a 34-year-old female who presents with nausea and vomiting and diaphoresis that started 2 hours prior to arrival. She also complained of a pressure feeling in her chest. She has a normal EKG. She is PERC negative. Her troponin is negative. Her C-reactive protein is 0.35. Her carbon dioxide is 18 but her comprehensive metabolic panel is otherwise normal. The patient's urine tox screen is positive for cannabinoids. The patient's abdomen is benign. Clinically I was at 1st somewhat puzzled. However she ultimately exhibited some fairly loud retching which seemed suggestive of a possible cannabis hyperemesis syndrome. She was initially given ketorolac and ondansetron but these medications did not seem to help very much. She was also given IV fluids. Ultimately she was given 5 mg of IV haloperidol and 25 mg of IV diphenhydramine. She was given more IV fluids. She fell asleep while she was receiving hydration. Ultimately she seemed to be feeling much better and was able to tolerate oral intake. I explained that her symptoms might be related to marijuana. She will be advised to follow up with her PCP to discuss this episode further. She should return if worse. Lab Data 06/13/24 06:21 06/13/24 06:42 Labs: Lab Results 06/13/24 06/13/24 06/13/24 Range/Units 06:21 06:42 07:31 WBC 10.6 (4.8-10.8) X10*3/uL RBC 4.96 (4.20-5.50) X10*6/uL Hgb 14.6 (12.0-16.0) g/dl Hct 42.4 (37.0-47.0) % MCV 85.5 (80.0-98.0) fL MCH 29.4 (27.0-33.0) pg MCHC 34.4 (31.0-35.0) g/dl RDW 14.7 (11.0-16.0) % Plt Count 322 (160-400) X10*3/uL MPV 10.4 (9.4-12.3) fL Immature Gran % (Auto) 0.6 H (0.0-0.4) % Neut % (Auto) 75.6 H (45-73) % Lymph % (Auto) 14.2 L (20-40) % Josephine % (Auto) 6.8 (2-11) % Eos % (Auto) 2.2 (0-4) % Baso % (Auto) 0.6 (0-2) % Lymph # (Auto) 1.5 (1.2-4.9) X10*3/uL Josephine # (Auto) 0.7 (0.1-1.2) X10*3/uL Eos # (Auto) 0.2 (0.0-0.4) X10*3/uL Baso # (Auto) 0.1 (0.0-0.2) X10*3/uL Abs Immat Gran (auto) 0.06 H (0.00-0.03) X10*3/uL Absolute Neuts (auto) 8.0 (2.0-8.3) x10*3/uL Absolute Nucleated RBC 0.000 (0.0-0.012) X10*3/uL Nucleated RBC % (auto) 0.0 (0.0-0.2) /100WBC Sodium 139 (135-145) mmol/L Potassium 3.4 (3.3-5.1) mmol/L Chloride 107 (96-108) mmol/L Carbon Dioxide 18 L (22-29) mmol/L Anion Gap 17 (12-20) BUN 10 (9-16) mg/dL Creatinine 0.87 (0.5-1.4) mg/dL Estim Creat Clear Calc 93.8 Estimated GFR > 60 Random Glucose 96 (60-115) mg/dL Calcium 9.2 (8.4-10.2) mg/dL Magnesium 1.7 (1.6-2.6) mg/dL Total Bilirubin 0.3 (0.0-1.0) mg/dL AST 27 (5-31) U/L ALT 12 (0-31) U/L Alkaline Phosphatase 64 (39-117) U/L Troponin I High Sens < 2.7 (<3.5-17.0) ng/L C-Reactive Protein 0.35 (< or = 0.50) mg/dL Total Protein 7.7 (6.5-8.0) g/dL Albumin 4.3 (3.5-5.0) g/dL Lipase 50 (8-78) U/L Beta HCG, Quant < 2 mIU/mL Urine Color Dark Yellow Urine Appearance Cloudy Urine pH 5.5 (5.0-9.0) Ur Specific [place] >= 1.030 H (1.005-1.025) Urine Protein 30 (1+) H (Neg-Trace) mg/dL Urine Glucose (UA) Negative (Negative) mg/dL Urine Ketones >=160 (Negative) mg/dL Urine Blood Negative (Negative) Urine Nitrite Negative (Negative) Ur Leukocyte Esterase Negative (Negative) Urine RBC 0-2 (0-2) /HPF Urine WBC 6-10 H (0-5) /HPF Ur Squamous Epith Cells >20 (0-2) /HPF Urine Bacteria 3+ (None Seen) Hyaline Casts 0-2 (0-2) /LPF Urine Opiates Screen Not Detected (Not Detect) Ur Buprenorphine Scrn Not Detected (Not Detect) ng/mL Ur Oxycodone Screen Not Detected (Not Detect) ng/mL Urine Methadone Screen Not Detected (Not Detect) ng/mL Urine Fentanyl Screen Not Detected (Not Detect) Ur Barbiturates Screen Not Detected (Not Detect) Ur Phencyclidine Scrn Not Detected (Not Detect) Ur Amphetamines Screen Not Detected (Not Detect) U Benzodiazepines Scrn Not Detected (Not Detect) Urine Cocaine Screen Not Detected (Not Detect) U Marijuana (THC) Screen POSITIVE H (Not Detect) Ethyl Alcohol < 10 mg/dL Influenza Type A (PCR) NEGATIVE (Negative) Influenza Type B (PCR) NEGATIVE (Negative) RSV RNA Qual (PCR) NEGATIVE (Negative) SARS-CoV-2 RNA (RT-PCR) NEGATIVE (Negative) Discharge Plan Discharge Clinical Impression: Nausea and vomiting Patient Disposition: Home, Self-Care Additional Instructions: I think the symptoms that you experienced today could be related to your procedure yesterday or could possibly related to marijuana use. Please plan on making a follow up appointment with your regular doctor to discuss this episode further. I have sent a prescription for ondansetron to the [facility] pharmacy. You may use this medication as needed for any ongoing nausea. Today I would restrict your diet to clear fluids and simple foods like toast and well cooked rice. Return to the emergency room if significantly worse. Prescriptions: New ondansetron 4 mg tablet,disintegrating 4 mg PO Q6H PRN (Reason: nausea and vomiting) Qty: 10 0RF Referrals: [facility] [Provider Group] Interventions: ED Discharge Assessment Last Done: 06/13/24 13:44 Discharge Date/Time: 06/13/24 13:48 Print Language: Ugandan
[2024-06-13 08:23] VITALS: BP 138/92; PULSE 61; RESP 15; O2SAT 99
[2024-06-13] MEDS: ondansetron HCL 4 MG/2 ML VIAL IVPUSH (08:40)
[2024-06-13] MEDS: Ketorolac Tromethamine 15 MG/ML VIAL 10 MG IVPUSH (08:40)
[2024-06-13] MEDS: 0.9 % Sodium Chloride 1,000 ML 999 ML IV (08:41)
[2024-06-13 08:55] LABS: C Reactive Protein 0.35 mg/dL (< or = 0.50); Lipase 50 U/L (8-78)
[2024-06-13 09:21] LABS: Amphetamine Screen Urine Not Detected (Not Detect); Barbiturates, Urine Not Detected (Not Detect); Benzodiazepines Screen Urine Not Detected (Not Detect); Buprenorphine Scr Not Detected (Not Detect); Cannabinoid Screen Urine POSITIVE (Not Detect); Cocaine Screen Urine Not Detected (Not Detect); Fentanyl, urine Not Detected (Not Detect); Methadone Screen, Urine Not Detected (Not Detect); Opiate Screen Urine Not Detected (Not Detect); Oxycodone Screen Urine Not Detected (Not Detect); Phencyclidine Screen Urine Not Detected (Not Detect)
[2024-06-13 09:31] LABS: Magnesium 1.7 mg/dL (1.6-2.6)
[2024-06-13] MEDS: diphenhydrAMINE HCL 50 MG/ML VIAL 25 MG IVPUSH (09:44)
[2024-06-13] MEDS: Haloperidol Lactate 5 MG/ML VIAL IVPUSH (09:44)
[2024-06-13 10:19] VITALS: PULSE 76; RESP 19
[2024-06-13] MEDS: Lactated Ringers 1,000 ML 999 ML IV ×2 (10:43→11:52)
[2024-06-13 12:50] VITALS: PULSE 80; RESP 20; O2SAT 97
[2024-06-13 13:44] VITALS: BP 140/93; PULSE 99; RESP 18; TEMP 36.7; O2SAT 100
== END 2024-06-13 13:48 | disposition home or self-care (01) ==
PROVIDERS: Emergency Provider Emergency Medicine
DX: R11.2 Nausea with vomiting, unspecified (principal); R06.02 Shortness of breath; R06.00 Dyspnea, unspecified; R61 Generalized hyperhidrosis; Z03.818 Encounter for observation for suspected exposure to other biological agents ruled out
CPT/HCPCS: 0241U; 36415; 71045; 80053; 80307; 81001; 83690; 83735; 84484; 84702; 85025; 86140; 87086; 93005; 96361; 96374; 96375; 99285; J1200; J1630; J1885; J2405; J7120

== ENCOUNTER → 2024-06-13 06:10 | Outpatient (BNV) | payer MEDICAID, SELFPAY | PROVIDERS: Emergency Provider Emergency Medicine; Visit Provider Internal Medicine | DX: R06.02 Shortness of breath (principal) | CPT/HCPCS: 93010 ==

== ENCOUNTER → 2024-06-13 07:30 | Outpatient (BNV) | payer MEDICAID, SELFPAY | PROVIDERS: Visit Provider Radiology Vascular & Interventional Radiology | DX: R06.00 Dyspnea, unspecified (principal) | CPT/HCPCS: 71045 ==

== ENCOUNTER 2025-02-01 13:55 | Outpatient (REF) | payer MEDICAID, SELFPAY ==
--- OUTSIDE RECORDS SUMMARY | 2025-02-01 14:00 | XMS_ITS | Encounter Summary ---
Author Organization [employer] Address [address] [place] [address] Care Team Providers Care Mottler Operator Name Role Phone Brigette Gomez MD Primary Care Provider [phone] Reason for Visit * Reason Comments Sore throat cough and stomach pain Encounter Details Date Type Department Care Team ([facility] Contact Info) Description 02/01/2025 2:00 PM EST Office Visit [facility] [address] [place] [address] Corinne Rodriguez MD [address] [place] [phone] Dietary counseling; Exercise counseling; Overweight; Sore throat Social History Tobacco Use Types Packs/Day Years [...] housing situation today? I have amadou farmer 11/05/[address] you li ve. Do you have problems with any of the following? None of the above 11/05/2024 Food Insecurity Answer Date Recorded Within the past 12 months, y ou worried that your food would run out before you got money to buy more: Never True 11/05/2024 Within the past 12 months,th e food you bought just didn't last and you didn't have enough money to get more: Never True Transportation Answer Date Recorded In the past 12 months, has l ack of transportation kept you from medical appts, meetings, work or from getting things needed for daily living? No 11/05/2024 Utilities Answer Date Recorded In the past 12 months, has t he electric, gas, oil or water company threatened to shut off services in your home? No 11/05/2024 Depression Answer Date Recorded Patient Health Questionnaire-2 Score 1 11/05/2024 Internet Access Answer Date Recorded Internet Access Q1 Yes 11/05/2024 Internet Access Q2 Not on file 11/05/2024 Comments Unknown Sex and Gender Information Value Date Recorded Sex Assigned at Female 12/21/2021 10:14 AM EDT Legal Sex Female 10:14 AM EDT Gender Identity Female 12/21/2021 10:14 AM EDT Sexual Orientation Straight 12/21/2021 10 :14 AM EDT documented as of this encounter Last Filed Vital Signs Vital Sign Reading Time Taken Comments Blood Pressure 125/75 02/01/2025 1:30 PM EST Pulse 88 02/01/2025 1:30 PM EST Temperature 36.3 C (97.4 F) 02/01/2025 1:30 PM EST Respiratory Rate 17 02/01/2025 1:30 PM EST Oxygen Saturation 98% 02/01/2025 1:30 PM EST Inhaled Oxygen Concentration - - Weight 78.3 kg (172 lb 9.6 oz) 02/01/2025 1:30 P M EST Height 160 cm (5' 3 ) 02/01/2025 1:30 PM EST Body Mass Index 30.57 02/01/2025 1:30 PM EST documented in this encounter Progress Notes * Corinne Rodriguez MD - 02/01/2025 2:00 PM EST Images from the original note were not included. SUBJECTIVE: Karly Mitchell is a 34 y.o. female who presents for acute visit. Denies recent illness, ER visit, or hospitalization. Acute Concerns: Acute upper respiratory symptoms - Onset 4-5 days prior to visit with fatigue, muscle aches, sore throat, and sensation of neck swelling - Able to tolerate fluids; focusing on Gatorade and soup - Reports household sick contacts: with lab-confirmed mononucleosis and strep; youngest child with strep - Not vaccinated against influenza or COVID Lab Results Since Last [facility] Visit as of 02/01/2025, sorted by update time Updated Procedure 02/01/25 1348 POCT Rapid Covid-19 BinaxNOW Collected: 02/01/25 1348 Final result Specimen: Swab Rapid COVID Ag Negative Lot# Expiration Date [id number] QC Media Lot # [id number] 02/01/25 1348 POCT Rapid Influenza A MEDLEY ID NOW Collected: 02/01/25 1348 Final result Specimen: Swab Influenza A Negative Lot# Expiration Date [id number] QC Media Lot # [id number] 02/01/25 1348 POCT Rapid Influenza B MEDLEY ID NOW Collected: 02/01/25 1347 Final result Specimen: Swab Influenza B Negative Lot# Expiration Date [id number] QC Media Lot # [id number] 02/01/25 1347 POCT Rapid Strep A OSOM Collected: 02/01/25 1347 Final result Specimen: Swab Rapid Strep A Screen Negative Lot# Expiration Date [id number] QC Media Lot # [id number] Patient Active Problem List Diagnosis Date Noted Family planning 11/15/2024 Retained 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 HENT: Positive for congestion and sore throat. Respiratory: Positive for cough. Cardiovascular: Negative. Gastrointestinal: Negative. Genitourinary: Negative. Musculoskeletal: Negative. Skin: Negative. OBJECTIVE: Vitals: 02/01/25 1330 BP: 125/75 BP Location: Left arm Patient Position: Sitting BP Cuff Size: Adult Pulse: 88 Resp: 17 Temp: 97.4 ??F (36.3 ??C) TempSrc: Temporal SpO2: 98% Weight: 172 lb 9.6 oz (78.3 kg) Height: 5' 3 (1.6 m) Physical Exam Vitals and nursing note reviewed. Constitutional: Appearance: Normal appearance. HENT: Head: Normocephalic and atraumatic. Right Ear: Tympanic membrane normal. Left Ear: Tympanic membrane normal. Nose: Nose normal. Mouth/Throat: Mouth: Mucous membranes are moist. Pharynx: Oropharynx is clear. Posterior oropharyngeal erythema present. Eyes: Extraocular Movements: Extraocular movements intact. Conjunctiva/sclera: Conjunctivae normal. Pupils: Pupils are equal, round, and reactive to light. Cardiovascular: Rate and Rhythm: Normal rate and regular rhythm. Pulses: Normal pulses. Heart sounds: Normal heart sounds. Pulmonary: Effort: Pulmonary effort is normal. Breath sounds: Normal breath sounds. Lymphadenopathy: Cervical: Cervical adenopathy present. Skin: General: Skin is warm and dry. Neurological: General: No focal deficit present. Mental Status: She is alert and oriented to person, place, and time. Psychiatric: Mood and Affect: Mood normal. Behavior: Behavior normal. ASSESSMENT/PLAN Exam is most consistent with mono currently currently diffuse cervical lymphadenopathy and fatigue.Will check monospot, CMP, and CBC. Supportive care with rest, fluids, and nutritious foods while she is recovering. Do not share foods, utensils, towels, or toothbrushes with others. Problem List Items Addressed This Visit None Visit Diagnoses Dietary counseling Exercise counseling Overweight Sore throat Relevant Orders POCT Rapid Covid-19 BinaxNOW (Completed) POCT Rapid Influenza A MEDLEY ID NOW (Completed) POCT Rapid Influenza B MEDLEY ID NOW (Completed) POCT Rapid Strep A OSOM (Completed) Comprehensive Metabolic Panel Mononucleosis Test, Qualitative CBC auto differential Follow Up: per PCP recall or sooner prn Allergies[2] Current Medications[3] [1] History reviewed. No pertinent surgical history. [2] Allergies Allergen Reactions Iopromide Other reaction(s): angioedema [3] Current Outpatient Medications: sulfamethoxazole-trimethoprim (Bactrim DS) 800-160 MG tablet, Take 1 tablet by mouth 2 times daily., Disp: , Rfl: traMADol (Ultram) 50 MG tablet, Take 1 tablet by mouth every 6 (six) hours if needed for pain., Disp: , Rfl: acetaminophen (Tylenol) 500 MG tablet, Take 1 tablet (500 mg) by mouth every 6 (six) hours if needed for mild pain, moderate pain or fever for up to 10 days., Disp: 30 tablet, Rfl: 0 cetirizine (ZyrTEC) 10 MG tablet, Take 1 tablet (10 mg) by mouth Once per day., Disp: 90 tablet, Rfl: 3 escitalopram (Lexapro) 10 MG tablet, Take 1 tablet by mouth once daily for 1 week, then 2 tablets by mouth once daily, Disp: 60 tablet, Rfl: 11 fluticasone (Flonase) 50 MCG/ACT nasal spray, Administer 1 spray into each nostril in the morning.,Disp: 16 g, Rfl: 11 hydrOXYzine HCl (Atarax) 25 MG tablet, TAKE 1 TABLET BY MOUTH EVERY 8 HOURS, Disp: 90 tablet, Rfl: 11 ibuprofen 600 MG tablet, Take 1 tablet (600 mg) by mouth 3 times daily., Disp: 30 tablet, Rfl: 0 medroxyPROGESTERone (Depo-Provera) 150 MG/ML injection, Inject 1 mL (150 mg) into the muscle every 3 (three) months., Disp: 1 mL, Rfl: 3 ondansetron ODT (Zofran-ODT) 4 MG disintegrating tablet, Take 1 tablet (4 mg) by mouth every 8 (eight) hours if needed for nausea or vomiting., Disp: 20 tablet, Rfl: 0 Vit-DSS-Fe Fum-FA (Se- 19) 29-1 MG tablet, Take 1 tablet by mouth Once per day., Disp: , Rfl: pyridoxine (Vitamin B-6) 25 MG tablet, Take 1 tablet by mouth before breakfast and before evening meal., Disp: , Rfl: traZODone (Desyrel) 50 MG tablet, Take 1 tablet (50 mg) by mouth at bedtime., Disp: 30 tablet, Rfl:11 Current Facility-Administered Medications: medroxyPROGESTERone (Depo-Provera) injection 150 mg, 150 mg, Intramuscular, q3 months, Brigette Gomez MD, 150 mg at 02/01/25 1400 documented in this encounter Plan of Treatment Upcoming Encounters Date Type Department Care Team (Late st Contact Info) Description 04/19/2025 11:30 AM EST Nurse Only [facility] [address] [place] [phone] documented as of this encounter Procedures Procedure Name Priority Date/Time Associated Diagnosis Comments CBC WITH AUTO DIFFERENTIAL Routine 02/01/2025 2:17 PM EST Sore throat MONONUCLEOSIS TEST, QUALITATIVE Routine 02/01/2025 2:17 PM EST Sore throat COMPREHENSIVE METABOLIC PANEL Routine 02/01/2025 2:17 PM EST Sore throat POCT INFLUENZA A (ID NOW RAPID MOLECULAR) Routine 02/01/2025 1:48 PM EST Sore throat POCT RAPID COVID ANTIGEN Routine 02/01/2025 1:48 PM EST Sore throat POCT INFLUENZA B (ID NOW RAPID MOLECULAR) Routine 02/01/2025 1:47 PM EST Sore throat POCT RAPID STREP A Routine 02/01/2025 1: 47 PM EST Sore throat documented in this encounter Results * (ABNORMAL) CBC auto differential (02/01/2025 2:17 PM EST) White Blood Count 10.0 4.8 - 10.8 X10*3/uL [facility] Red Blood Count 4.44 4.20 - 5.50 X10*6/uL [facility] Hemoglobin 13.0 12.0 - 16.0 g/dl [facility] Hematocrit 40.0 37.0 - 47.0 % [facility] Mean Corpuscular Volume 90.1 80.0 - 98.0 fL [facility] Mean Corpuscular Hemoglobin 29.3 27.0 - 33.0 pg [facility] Mean Corpuscular HGB Conc 32.5 31.0 - 35.0 g/dl [facility] Red Cell Distribution Width 13.9 11.0 - 16.0 % [facility] Platelet Count 330 160 - 400 X10*3/uL [facility] Mean Platelet Volume 10.1 9.4 - 12.3 fL [facility] Neutrophils Percent Auto 61.7 45 - 73 % [facility] Imm Gran Pct Auto 1.1(H) 0.0 - 0.4 % [facility] Lymphocytes Percent Auto 27.1 20 - 40 % [facility] Monocytes Percent Auto 6.7 2 - 11 % [facility] Eosinophils Percent Auto 2.6 0 - 4 % [facility] Basophils Percent Auto 0.8 0 - 2 % [facility] NRBC Pct Auto 0.0 0.0 - 0.2 /100WBC [facility] Neutrophils Absolute Auto 6.1 2.0 - 8.3 x10*3/uL [facility] Imm Gran Abs Auto 0.11(H) 0.00 - 0.03 X10*3/uL [facility] Lymphocytes Absolute Auto 2.7 1.2 - 4.9 X10*3/uL [facility] Monocytes Absolute Auto 0.7 0.1 - 1.2 X10*3/uL [facility] Eosinophils Absolute Auto 0.3 0.0 - 0.4 X10*3/uL [facility] Basophils Absolute Auto 0.1 0.0 - 0.2 X10*3/uL [facility] NRBC Abs Auto 0.000 0.0 - 0.012 X10*3/uL [facility] Blood Venous blood specimen / Unknown 02/01/2025 2:17 PM EST 02/01/2025 4:05 PM EST Corinne Rodriguez MD LAB BLOOD ORDERABLES Final Res ult Performing Organization Address City/[facility]/ZIP Co de Phone Number [facility] [address] [place] [phone] * Mononucleosis Test, Qualitative (02/01/2025 2:17 PM EST) Monotest Negative Negative [facility] Blood Venous blood specimen / Unknown 02/01/2025 2:17 PM EST 02/01/2025 4:05 PM EST Corinne Rodriguez MD LAB BLOOD ORDERABLES Final Res ult [facility] [address] [place] [phone] * (ABNORMAL) Comprehensive Metabolic Panel (02/01/2025 2:17 PM EST) Sodium 140 135 - 145 mmol/L [facility] Potassium 4.8 3.3 - 5.1 mmol/L [facility] Chloride 108 96 - 108 mmol/L [facility] Carbon Dioxide 27 22 - 29 mmol/L [facility] Anion Gap 10(L) 12 - 20 [facility] Urea Nitrogen (BUN) 12 9 - 16 mg/dL [facility] Creatinine, Serum 0.84 0.5 - 1.4 mg/dL [facility] Estimated Glomerular Filt Rate >60 [facility] Comment:Chronic Kidney Disea se: Estimated GFR < 60 mL/min/1.25q1Usjbyy Kidney Disease: Estimated GFR < 15 mL/min/1.73m2 Glucose 84 60 - 115 mg/dL [facility] Calcium 9.1 8.4 - 10.2 mg/dL [facility] Bilirubin, Total 0.3 0.0 - 1.0 mg/dL [facility] Aspartate Amino Transferase 22 5 - 31 U/L [facility] Alanine Aminotransferase 16 0 - 31 U/L [facility] Total Protein 7.5 6.5 - 8.0 g/dL [facility] Albumin Level 4.4 3.5 - 5.0 g/dL [facility] Alkaline Phosphatase 56 39 - 117 U/L [facility] Blood Venous blood specimen / Unknown 02/01/2025 2:17 PM EST 02/01/2025 4:02 PM EST us Corinne Rodriguez MD LAB BLOOD ORDERABLES Final Res ult Performing Organization Address [facility]/ZIP Co de Phone Number [facility] [address] [place] [phone] * POCT Rapid Influenza A MEDLEY ID NOW (02/01/2025 1:48 PM EST) [facility] Influenza A Negative Negative, Indeterminate [facility] QC Media Lot # [id number] [facility] Lot# Expiration Date [facility] Swab 02/01/2025 1:48 PM EST Corinne Rodriguez MD POINT OF CARE TEST ENTER/EDIT ORDERABLES Final Result [facility] [address] [place] [phone] * POCT Rapid Covid-19 BinaxNOW (02/01/2025 1:48 PM EST) [facility] Rapid COVID Ag Negative QC Media Lot # [id number] Lot# Expiration Date Swab 02/01/2025 1:48 PM EST Result [facility] Corinne Rodriguez MD POINT OF CARE TEST ENTER/EDIT ORDERABLES Final Result * POCT Rapid Strep A OSOM (02/01/2025 1:47 PM EST) [facility] Rapid Strep A Screen Negative Negative, None Detected QC Media Lot # [id number] Lot# Expiration Date Swab 02/01/2025 1:47 PM EST Result [facility] Corinne Rodriguez MD POINT OF CARE TEST ENTER/EDIT ORDERABLES Final Result * POCT Rapid Influenza B MEDLEY ID NOW (02/01/2025 1:47 PM EST) [facility] Influenza B Negative Negative, Indeterminate [facility] QC Media Lot # [id number] [facility] Lot# Expiration Date [facility] Swab 02/01/2025 1:47 PM EST Result [facility] Corinne Rodriguez MD POINT OF CARE TEST ENTER/EDIT ORDERABLES Final Result [facility] [address] [place] [phone] documented in this encounter Visit Diagnoses Diagnosis Dietary counseling Dietary surveillance and counseling Exercise counseling Overweight Sore throat Acute pharyngitis documented in this encounter Administered Medications Active Administered Medications - up to 3 most recent administrations Medication Order MAR Action Action Date Dose Rate Site medroxyPROGESTERone (Depo-Provera) injection 150 mg 150 mg, Intramuscular, Every 3 months, First dose on Tue06/09/22 at 1200Indications:Uses Depo-Provera as primary control method Given 02/01/2025 2:00 PM EST 150 mg Left Deltoid Given 11/06/2024 2:18 PM EDT 150 mg Le ft Deltoid Given 06/09/2022 12:10 PM EDT 150 mg L eft Deltoid documented in this encounter Additional Health Concerns Assessment Noted Time PHQ-9 Depression Total Score: 1 08/12/19 11:30 AM EDT documented as of this encounter Care Teams Mottler Operator Relationship Specialty Start Date End Date Brigette Gomez MD [address] [place] [address] PCP - General Family Medicine 02/21/18 documented as of this encounter
[2025-02-01 16:09] LABS: MANUAL DIFF FLAG NO
[2025-02-01 16:15] LABS: Hematocrit 40.0 % (37.0-47.0); Hemoglobin 13.0 g/dl (12.0-16.0); Imm Gran Abs Auto 0.11 X10*3/uL (0.00-0.03); Imm Gran Pct Auto 1.1 % (0.0-0.4); Lymphocytes Absolute Auto 2.7 X10*3/uL (1.2-4.9); Mean Corpuscular HGB Conc 32.5 g/dl (31.0-35.0); Mean Corpuscular Hemoglobin 29.3 pg (27.0-33.0); Mean Corpuscular Volume 90.1 fL (80.0-98.0); NRBC Abs Auto 0.000 X10*3/uL (0.0-0.012); NRBC Pct Auto 0.0 /100WBC (0.0-0.2); Platelet Count 330 X10*3/uL (160-400); Red Blood Count 4.44 X10*6/uL (4.20-5.50); White Blood Count 10.0 X10*3/uL (4.8-10.8)
[2025-02-01 16:32] LABS: Alanine Aminotransferase 16 U/L (0-31); Albumin Level 4.4 g/dL (3.5-5.0); Alkaline Phosphatase 56 U/L (39-117); Anion Gap 10 (12-20); Aspartate Amino Transferase 22 U/L (5-31); Blood Urea Nitrogen 12 mg/dL (9-16); Calcium 9.1 mg/dL (8.4-10.2); Carbon Dioxide 27 mmol/L (22-29); Chloride 108 mmol/L (96-108); Estimated Glomerular Filt Rate > 60; Potassium 4.8 mmol/L (3.3-5.1); Sodium 140 mmol/L (135-145); Total Protein 7.5 g/dL (6.5-8.0)
[2025-02-01 16:36] LABS: Cholesterol 144 mg/dL (<200); HDL Cholesterol 43 mg/dL (>40); Triglycerides 80 mg/dL (<150)
[2025-02-01 16:45] LABS: Reflex LDLD? No
--- OUTSIDE RECORDS SUMMARY | 2025-02-01 19:21 | XMS_ITS | Encounter Summary ---
Author Organization [employer] Address [address] [facility] 7 [place] [address] Care Team Providers Care Surety Bond Agent Name Role Phone Brigette Gomez MD Primary Care Provider [phone] Reason for Visit * Reason Onset Date Comments Med Refill 06/28/2024 Encounter Details Date Type Department Care Team ([facility] Contact Info) Description 06/28/2024 Telephone [facility] [address] [place] [address] Brigette Gomez MD [address] [place] [address] Med Refill Social History Tobacco Use Types [...] Telephone Encounter - Renee Cerrato LPN - 06/28/2024 10:53 AM EDT Medications requested have refills. * Telephone Encounter - Jonathan Guerrero - 06/28/2024 10:44 AM EDT TC from pt requesting medication refill - hydrOXYzine HCl (Atarax) 25 MG tablet sertraline (Zoloft) 50 MG tablet To be sent to: [facility] pharmacy documented in this encounter Plan of Treatment Upcoming Encounters Date Type Department Care Team (Late st Contact Info) Description 04/19/2025 11:30 AM EST Nurse Only [facility] [address] [place] [address] documented as of this encounter Visit Diagnoses Not on filedocumented in this encounter Additional Health Concerns Assessment Noted Time PHQ-9 Depression Total Score: 1 08/12/19 23 11:30 AM EDT documented as of this encounter Care Teams Surety Bond Agent Relationship Specialty Start Date End Date Brigette Gomez MD [address] [place] [address] PCP - General Family Medicine 02/21/18 documented as of this encounter
--- OUTSIDE RECORDS SUMMARY | 2025-02-01 19:21 | XMS_ITS ---
Author Name [facility] Organization Unknown History of Medication Use Medication Directions Dispensed Refills Start Date End Date Stat us nitrofurantoin, macrocrystal-monohyd rate, (MACROBID) 100 MG capsule TAKE 1 CAPSULE BY MOUTH TWICE DAILY FOR 7 DAYS 08/04/2023 active sertraline (ZOLOFT) 25 MG tablet TAKE 1 TABLET BY MOUTH DAILY IN THE MORNING WITH 50 MG 07/25/2023 active Vit-DSS-Fe Fum-FA (Se-Uziel 19) 29-1 MG TABS Take 1 tablet by mouth. 06/08/2023 active pyridoxine (B-6) 25 MG tablet Take 1 tablet (25 mg total) by mouth. 05/03/2023 active Vit-Fe Fumarate-FA ( Plus) 27-1 MG TABS tablet Take by mouth. 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
--- OUTSIDE RECORDS SUMMARY | 2025-02-01 19:22 | XMS_ITS | Encounter Summary ---
Author Organization [employer] Address [address] [place] [address] Care Team Providers Care Phd Internship Name Role Phone Brigette Gomez MD Primary Care Provider [phone] Reason for Visit * Reason Onset Date Comments Med Refill 01/31/2023 Encounter Details Date Type Department Care Team ([facility] Contact Info) Description 01/31/2023 Telephone [facility] [address] [place] [address] Brigette Gomez MD [address] [place] [address] Med Refill Social History Tobacco Use Types [...] 9:17 AM EST Medication was sent to [facility] on 08/11/22 #90 with 3 refills. * Telephone Encounter - Nat Buenrostro - 01/31/2023 9:00 AM EST Tc from pt requesting medication refill on cetirizine (ZyrTEC) 10 MG tablet documented in this encounter Plan of Treatment Upcoming Encounters Date Type Department Care Team (Late st Contact Info) Description 04/19/2025 11:30 AM EST Nurse Only [facility] [address] [place] [address] documented as of this encounter Visit Diagnoses Not on filedocumented in this encounter Additional Health Concerns Assessment Noted Time PHQ-9 Depression Total Score: 1 08/12/19 23 11:30 AM EDT documented as of this encounter Care Teams Phd Internship Relationship Specialty Start Date End Date Brigette Gomez MD [address] [place] [address] PCP - General Family Medicine 02/21/18 documented as of this encounter
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
--- OUTSIDE RECORDS SUMMARY | 2025-02-01 19:22 | XMS_ITS | Encounter Summary ---
Author Organization [employer] Address [address] [place] [address] Care Team Providers Care Hydro Operator Name Role Phone Brigette Gomez MD Primary Care Provider [phone] Encounter Details Date Type Department Care Team ([facility] st Contact Info) Description 04/28/2023 Telephone [facility] [address] [place] [address] Brigette Gomez MD [address] [place] [address] Social History Tobacco Use Types Packs/Day Years [...] Description 04/19/2025 11:30 AM EST Nurse Only [facility] [address] [place] [address] documented as of this encounter Visit Diagnoses Not on filedocumented in this encounter Additional Health Concerns Assessment Noted Time PHQ-9 Depression Total Score: 1 08/12/19 23 11:30 AM EDT documented as of this encounter Care Teams Hydro Operator Relationship Specialty Start Date End Date Brigette Gomez MD [address] [place] [address] PCP - General Family Medicine 02/21/18 documented as of this encounter
--- OUTSIDE RECORDS SUMMARY | 2025-02-01 19:22 | XMS_ITS | Clinical Summary ---
Author Organization [facility] Prior to 07/21/24 Address [address] [place] [address] Care Team Providers Care Furnace Tapper Name Role Phone Unavailable Primary Care Provider [...] by mouth. 0 05/03/2023 Active Vit-DSS-Fe Fum-FA (Se- 19) 29-1 MG TABS Take 1 tablet [...] (Pap Smear) 2010 COVID-19 Vaccine ( season) 2024 08/11/2022, 2021, 10/10/2020 Influenza Vaccine (#1) 2024 9, 01/05/2016, 12/26/2014, Additional history exists DTap [...]
--- OUTSIDE RECORDS SUMMARY | 2025-02-01 19:22 | XMS_ITS | Encounter Summary ---
Author Organization [employer] Address [address] [place] [address] Care Team Providers Care Operating Room Scheduler Name Role Phone Brigette Gomez MD Primary Care Provider [phone] Encounter Details Date Type Department Care Team ([facility] st Contact Info) Description 01/19/2023 Abstract [facility] [address] [place], [place] [id number] Betty Luna Social History Tobacco Use Types [...] Description 04/19/2025 11:30 AM EST Nurse Only [facility] [address] [place] [address] documented as of this encounter Visit Diagnoses Not on filedocumented in this encounter Additional Health Concerns Assessment Noted Time PHQ-9 Depression Total Score: 1 08/12/19 23 11:30 AM EDT documented as of this encounter Care Teams Operating Room Scheduler Relationship Specialty Start Date End Date Brigette Gomez MD [address] [place] [address] PCP - General Family Medicine 02/21/18 documented as of this encounter
--- OUTSIDE RECORDS SUMMARY | 2025-02-01 19:22 | XMS_ITS | Encounter Summary ---
Author Organization [employer] Address [address] [facility] [address] [place] [address] Care Team Providers Care Shear Grinder Operator Name Role Phone Brigette Gomez MD Primary Care Provider [phone] Reason for Visit * Reason Onset Date Comments Medication Question 01/29/2025 Encounter Details Date Type Department Care Team ([facility] Contact Info) Description 01/29/2025 Telephone [facility] [address] [place] [address] Brigette Gomez MD [address] [place] [address] Medication Question Social History Tobacco Use Types Packs/Day Years [...] encounter Miscellaneous Notes * Telephone Encounter - Jennifer Landaverde RN - 01/29/2025 2:11 PM EST TC placed to the pt and a VM was left to call back the office in regard to r/s missed Depo injection [place] * Telephone Encounter - Massiel Rivera - 01/29/2025 10:05 AM EST Tc from pt stating babydad does not know about injection and would like for nurse to quill picking machine operator injection prior to apt so it Is ready . Please contact at [phone] documented in this encounter Plan of Treatment Upcoming Encounters Date Type Department Care Team (Late st Contact Info) Description 04/19/2025 11:30 AM EST Nurse Only [facility] [address] [place] [address] documented as of this encounter Visit Diagnoses Not on filedocumented in this encounter Additional Health Concerns Assessment Noted Time PHQ-9 Depression Total Score: 1 08/12/19 23 11:30 AM EDT documented as of this encounter Care Teams Shear Grinder Operator Relationship Specialty Start Date End Date Brigette Gomez MD [address] [place] [address] PCP - General Family Medicine 02/21/18 documented as of this encounter
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
--- OUTSIDE RECORDS SUMMARY | 2025-02-01 19:22 | XMS_ITS | Clinical Summary ---
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 Marijuana abuse 04/13/2013 DX:Marijuana abu se History of anemia 12/30/2011 DX:History of anemia; COMMENT: H&H 8./.1 History of chlamydia 2005 DX:History of chlamydia [...] 72 06/06/2024 2:00 AM EDT Temperature 37.1 C (98.7 F) 06/06/2024 12:17 AM EDT Respiratory Rate 16 06/06/2024 2:00 AM EDT [...] (3 - 3-dose series) 06/06/2008 02/13/2008, 12/07/2007 Social Influencers of Health Screening 09/20/2023 Depression Screening 02/22/2024 COVID-19 Vaccine ( season) 2024 08/11/2022, 2021, 10/10/2020 Influenza Vaccine (#1) 2024 9, 01/05/2016, 12/26/2014, Additional history exists Cervical Cancer Screening: Pap Smear 05/02/2026 05/03/2023 DTaP,Tdap,and Td Vaccines (10 - Td or Tdap) 09/14/2033 09/15/2023, 08/10/2016, 11/07/2013, Additional history exists RSV Immunization Adult Patients (1 - 1-dose 75+ series) 2064 HIB [...] 5 Years) and At-Risk Patients (6 to 49 Years) Aged Out No longer eligible based on patient's age to complete this topic RSV Immunization Patients Under 20 months Aged Out No longer eligible based on patient's age to complete this topic Varicella Vaccines Aged Out No longer eligible based on patient's age to complete this topic Procedures Procedure Name Priority Date/Time Associated Diagnosis Comments PAP SMEAR Routine 05/03/2023 from Last 3 Months or Most Recently Relevant to Health Maintenance Results * Pap smear (05/03/2023) 05/03/2023 Narrative HISTORICAL TESTING LAB RESULTING AGENCY - 05/11/2023 9:25 AM EDT [id number] THINPREP PAP, IMAGED: NEGATIVE FOR SQUAMOUS INTRAEPITHELIAL LESION AND MALIGNANCY . ABUNDANT PARTIALLY OBSCURING ACUTE INFLAMMATORY CELLS ARE PRESENT. YOSEF ARZOLA(ASCP) (CASE ELECTRONICALLY SIGNED 05 11 2023) RESULT OF APTIMA HIGH RISK HPV ASSAY: HIGH RISK HPV: NEGATIVE (SEROTYPES 16,18,31,33,35,39,45,51,52,56,58,59,66,68) COMPLETED ON 2023-05-05 ADEQUACY: SATISFACTORY ENDOCERVICAL/TRANSFORMATION ZONE COMPONENT PRESENT. SOURCE: THINPREP PAP HPV ANY DX: REFLEX 16 AND 18, CERVICAL, IMAGED CLINICAL INFORMATION: HPV ANY DIAGNOSIS. , PAP HX NEGATIVE, [Z12.4] Tressa L Nayak CNM LAB CYTOLOGY ORDERABLES Final Result HISTORICAL TESTING LAB RESULTING AGENCY from Last 3 Months or Most Recently Relevant to Health Maintenance Insurance MEDICAID - [place] Care Teams President Relationship Specialty Start Date End Date Brigette Gomez MD [address] [place] [phone] PCP - General 03/20/07
--- OUTSIDE RECORDS SUMMARY | 2025-02-01 19:22 | XMS_ITS | Encounter Summary ---
Author Organization [employer] [facility] Address [address] [place] [address] [address] [place] [address] Care Team Providers Care Animal Handler Name Role Phone Brigette Gomez MD Primary Care Provider [phone] Reason for Visit * Reason Comments Med Refill Encounter Details Date Type Department Care Team (Late Contact Info) Description 04/09/2022 Refill [facility] [address] [place] [phone] Brigette Gomez MD [address] [place] [phone] Social History Tobacco Use Types Packs/Day Years [...] Description 04/19/2025 11:30 AM EST Nurse Only [facility] [address] [place] [phone] documented as of this encounter Visit Diagnoses Not on filedocumented in this encounter Care Teams Animal Handler Relationship Specialty Start Date End Date Brigette Gomez MD [address] [place] [phone] PCP - General Family Medicine 02/21/18 documented as of this encounter
--- OUTSIDE RECORDS SUMMARY | 2025-02-01 19:22 | XMS_ITS | Encounter Summary ---
Author Organization [employer] Address [address] [place] [address] Care Team Providers Care Reproduction Order Processor Name Role Phone Brigette Gomez MD Primary Care Provider [phone] Encounter Details Date Type Department Care Team (Latest Contact Info) Description 02/01/2025 Travel Social History Tobacco Use Types Packs/Day Years Used Date Smoking Tobacco: Former Cigarettes Passive Smoke Exposure: Past Smokeless Tobacco: Never Alcohol Use Standard Drinks/Week Comments Defer 0 (1 standard drink = 0.6 oz pur e alcohol) Depression Answer Date Recorded Patient Health Questionnaire-9 Score 1 08/11/2022 Housing Stability Answer Date Recorded What is your housing situation today? I have amadou marleny 11/05/[address] you li [...] Description 04/19/2025 11:30 AM EST Nurse Only [facility] [address] [place] [phone] documented as of this encounter Visit Diagnoses Not on filedocumented in this encounter Additional Health Concerns Assessment Noted Time PHQ-9 Depression Total Score: 1 08/12/19 23 11:30 AM EDT documented as of this encounter Care Teams Reproduction Order Processor Relationship Specialty Start Date End Date Brigette Gomez MD [address] [place] [address] PCP - General Family Medicine 02/21/18 documented as of this encounter
== END 2025-02-01 13:56 | disposition home or self-care (01) ==
LOC: HO.HHCL 13:55
PROVIDERS: PCP Family Medicine; Referring Provider General Practice; Visit Provider Family Medicine
DX: Z01.84 Encounter for antibody response examination (principal); Z13.220 Encounter for screening for lipoid disorders; Z13.1 Encounter for screening for diabetes mellitus; J02.9 Acute pharyngitis, unspecified; F41.9 Anxiety disorder, unspecified; R56.9 Unspecified convulsions
CPT/HCPCS: 36415; 80053; 80061; 83036; 84443; 85025; 86308